=== PATIENT | male | born 1950 | race Caucasian/White ===

== ENCOUNTER → 2023-10-18 11:57 | Outpatient (REF) | payer BC, SELFPAY | LOC: RAD 11:57 | PROVIDERS: ATTENDING PHYSICIAN Family Medicine | DX: R06.02 Shortness of breath (principal) | CPT/HCPCS: 71046 ==

== ENCOUNTER → 2023-11-15 12:03 | Outpatient (REF) | payer BC, SELFPAY | LOC: RAD 12:03 | PROVIDERS: ATTENDING PHYSICIAN Family Medicine | DX: M25.531 Pain in right wrist (principal); M25.532 Pain in left wrist | CPT/HCPCS: 73110 ==